=== PATIENT | male | born 1975 | race Caucasian/White ===

== ENCOUNTER 2024-03-11 14:43 | Outpatient (AMB) | payer OTHER, SELFPAY ==
--- NOTE | 2024-03-11 14:55 | MHC.PC.OV ---
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 Intake Note: New patient visit, needs colonoscopy Vessel Ordinary Seaman Required: No Allergies No Known Allergies Allergy (Verified 03/11/24 14:56) Medication List - Last Reconciled 03/11/24 by Mazin Garcia MD indomethacin 50 mg PO TID sildenafil 50 mg PO DAILY PRN Tobacco use date assessed: 03/11/24 Dental Screening Dental Screen Date: 03/11/24 Did you have a dental visit in the last 12 months?: Yes Did you have a dental problem in the last 6 months where you did not have access to dental care?: No Was dental information given to patient?: Patient has dentist 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 No recent PCP. [facility] Last office visit/CPE: 5 yrs Acute issue(s): Eye Exam PMHx: Gout, ED, SurgHx: None FHx: Dad: CAD w stent, HLD, HTN, Prostate CA. Mom: CAD w stent. CHF. GM: Breast CA. GF: CAD. pGF: Early AL SocHx: Nonsmoker. EtOH: 12 a day. No drugs PFSH Family History (Updated 03/11/24 @ 15:14 by Sarita Kaur CMA) Father Mental disorder HTN (hypertension) Prostate cancer Maternal Grandmother Diabetes Paternal Grandmother Breast cancer Paternal Grandfather Heart attack Social History (Updated 03/11/24 @ 15:15 by Sarita Kaur CMA) Housing: House Patient Tobacco Use Status: Former Tobacco user Tobacco use type: Smokeless Tobacco Years Smoked: chewed tobacco from [place] to age 29, and periodically after that. 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 1. Little interest or pleasure in doing things: not at all 2. Feeling down, depressed, or hopeless: not at all 3. Trouble falling or staying asleep, or sleeping too much: not at all 4. Feeling tired or having little energy: not at all 5. Poor appetite or overeating: not at all 6. Feeling bad about yourself - or that you are a failure or have let yourself or your family down: not at all 7. Trouble concentrating on things, such as reading the newspaper or watching television: not at all 8. Moving or speaking so slowly that other people could have noticed. Or the opposite - being so fidgety or restless that you have been moving around a lot more than usual: not at all 9. Thoughts that you would be better off or of hurting yourself in some way: not at all Total score: 0 Depression Screening Interpretation: Negative Depression Screening Done: Yes Source: Developed by Drs. Vipin Hendrix, Erin López, Arron Solares and colleagues, with an educational marie from [employer]. Thrive Questionnaire Date Thrive assessed: 03/11/24 I am a: Patient What is your living situation today?: I have a steady place to live Within the past 12 months, did the food you bought not last and you didn't have the money to get more?: Never true Within the past 12 months, did you worry whether your food would run out before you got money to buy more?: Never true Do you have trouble paying for medicines?: No Do you have trouble getting transportation to medical appointments?: No Do you have trouble paying your heating and electricity bill?: No Do you have trouble taking care of your child, family member or friend?: No Do you have trouble with day-to-day activities such as bathing, preparing meals, shopping, managing finances, etc.?: No Are you currently unemployed and looking for a job?: No Are you interested in more education?: No Please select the resources that you would like help with: None Currently or been in a relationship where the following occur: no concerns reported THRIVE Score: 0 AUDIT C Alcohol Use Questionnaire (AUDIT-C) 1. How often do you have a drink containing alcohol?: 4 or more times a week 2. How many drinks containing alcohol do you have on a typical day when you are drinking?: 5 or 6 3. How often do you have six or more drinks on one occasion?: Weekly Total Score: 9 ASHWIN-7 AMB Questionnaire ASHWIN-7 Date ASHWIN - 7 assessed: 03/11/24 Feeling nervous, anxious, or on edge: 0 = Not at all Not being able to stop or control worryin = Not at all Worrying too much about different things: 0 = Not at all Trouble relaxin = Not at all Being so restless that it is hard to sit still: 0 = Not at all Becoming easily annoyed or irritable: 0 = Not at all Feeling afraid as if something awful might happen: 0 = Not at all Total ASHWIN-7 score (0-4 normal; 5-9 mild; 10-14 moderate; 15-21 severe): 0 Source: Developed by Drs. Vipin Hendrix, Erin López, Arron Solares and colleagues, with an educational marie from [employer]. ASHWIN-7 Assessment Billing ASHWIN-7 Assessment Tool: ASHWIN-7 Assessment 72577 Review of Systems Const Denies chills, Denies fatigue, Denies fever(s), Denies headache(s) and Denies weakness ENT Denies dizziness and Denies headache(s) Card Denies chest pain, Denies lightheadedness, Denies dyspnea and Denies other (Palpitations) Resp Denies cough, Denies dyspnea, Denies wheezing and Denies other ( shortness of breath) Musc Denies numbness and Denies tingling Neuro Denies dizziness, Denies headache(s), Denies numbness, Denies tingling, Denies paresthesias and Denies weakness Psych Denies anxiety and Denies depression Endo Denies fatigue Aller/Immun Denies wheezing Physical exam (Primary Care) Vital Signs: Last Vital Signs Temp 98.7 F 03/11/24 15:04 Pulse 76 03/11/24 15:04 Resp 14 03/11/24 15:04 BP 152/88 H 03/11/24 15:07 Pulse Ox 96 03/11/24 15:04 Oxygen Delivery Method Room Air 03/11/24 15:04 BMI result Body Mass Index 31.7 Tobacco/Smoking Status: Tobacco use Status Tobacco use date assessed 03/11/24 03/11/24 15:08 Patient Tobacco Use Status Former Tobacco user 03/11/24 15:15 Tobacco use type Smokeless Tobacco 03/11/24 15:15 e-Cigarette/Vaping Use Never Used 03/11/24 15:15 PHQ-9: PHQ-9 Score PHQ-9: Total score 0 03/11/24 15:35 Depression Screening Interpretation: Negative Thrive Assessment: Date of Thrive Assessment Date Thrive assessed 03/11/24 03/11/24 15:18 Currently or been in a relationship where the following occur: no concerns reported Const General: no acute distress and well developed Nutritional Appearance: well nourished Orientation/consciousness: patient oriented x3 HENMT Head: Yes normocephalic and Yes atraumatic Eyes General: appearance normal, both eyes and all related structures Pupils: Equal, round and reactive pupils present EOM: EOMs intact bilaterally Resp Effort & Inspection: normal respiratory effort Auscultation: clear to auscultation bilaterally Cardio Rate: regular rate Rhythm: regular rhythm Heart sounds: S1 normal heart sound present, S2 normal heart sound present, no gallops, no murmurs and no rubs Neuro General: patient oriented x3 and gait normal Cranial nerves: Yes Equal, round and reactive pupils present Psych Affect: normal affect Assessment and Plan Assessment & Plan (1) Hypertension: Code(s): I10 - Essential (primary) hypertension Plan: Start?lisinopril Goal?is?less?than?140/90 (2) Gout: Code(s): M10.9 - Gout, unspecified Plan: Check?uric?acid Currently?using?indomethacin?though?this?can?raise?blood?pressure May?be?a?good?candidate?for?allopurinol Strongly?advised?he?reduce?his?alcohol?intake (3) Erectile dysfunction: Code(s): N52.9 - Male erectile dysfunction, unspecified Plan: Currently?uses?sildenafil (4) Family history of coronary artery disease: Code(s): Z82.49 - Family history of ischemic heart disease and other diseases of the circulatory system Plan: Strong?family?history?of?coronary?artery?disease. 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 Offered?a?referral?to?the?[facility]?which?he?has?declined?but?he?is?aware?that?he?can?let?me?know?he?changes?his?mind (7) Laboratory exam ordered as part of routine general medical examination: Code(s): Z00.00 - Encounter for general adult medical examination without abnormal findings Plan: Check?lab Orders: Orders Comprehensive [place]. Panel Fast Today Z00.00 - Encounter for general adult medical examination without abnormal findings Prostate Specific Antigen Scr Today Z12.5 - Encounter for screening for malignant neoplasm of prostate Uric Acid Today M10.9 - Gout, unspecified Lipid Panel Today Z00.00 - Encounter for general adult medical examination without abnormal findings Microalbumin, Random (w Creat) Today I10 - Essential (primary) hypertension TSH reflex Free T4 Today Z00.00 - Encounter for general adult medical examination without abnormal findings UA and rflx microscopic Today Z00.00 - Encounter for general adult medical examination without abnormal findings Referrals Gastroenterology Referral Z12.11 - Encounter for screening for malignant neoplasm of colon Ophthalmology Referral H53.9 - Unspecified visual disturbance Medications: New lisinopril 20 mg PO DAILY 30 days 30 tabs 2RF Coding Level of Care Code New Pt Level 3 (79434) Diagnoses Hypertension I10 Gout M10.9 Erectile dysfunction N52.9 Family history of coronary artery disease Z82.49 Vision changes H53.9 Alcohol abuse F10.10 Laboratory exam ordered as part of routine general medical examination Z00.00 Additional Codes ASHWIN-7 Assessment Billing - ASHWIN-7 Assessment Tool: ASHWIN-7 Assessment 36259 ([id number])
[2024-03-11 15:04] VITALS: BP 164/90; PULSE 76; RESP 14; TEMP 37.1; O2SAT 96; BMI 31.7
[2024-03-11 15:07] VITALS: BP 152/88
== END 2024-03-11 16:10 | disposition home or self-care (01) ==
PROVIDERS: PCP Family Medicine; Visit Provider Family Medicine
DX: I10 Essential (primary) hypertension (principal); M10.9 Gout, unspecified; N52.9 Male erectile dysfunction, unspecified; Z82.49 Family history of ischemic heart disease and other diseases of the circulatory system; H53.9 Unspecified visual disturbance; F10.10 Alcohol abuse, uncomplicated
CPT/HCPCS: 99203

== ENCOUNTER 2024-03-13 09:18 | Outpatient (REF) | payer OTHER, SELFPAY ==
[2024-03-13 11:33] LABS: Appearance Urine Clear; Color Urine Yellow; Glucose Urine UA Negative (Negative); Leukocyte Esterase Urine Negative (Negative); Nitrite Urine Negative (Negative); Urine Blood Negative (Negative); Urine Ketones Trace mg/dL (Negative); Urine Protein Negative (Neg-Trace)
[2024-03-13 12:44] LABS: Prostate Specific Antigen Scr 2.69 ng/mL (<0.05-4.0)
[2024-03-13 12:55] LABS: Alanine Aminotransferase 60 U/L (0-40); Albumin Level 4.6 g/dL (3.5-5.0); Alkaline Phosphatase 80 U/L (39-117); Anion Gap 15 (12-20); Aspartate Amino Transferase 49 U/L (5-37); Bilirubin Total 1.3 mg/dL (0.0-1.0); Blood Urea Nitrogen 7 mg/dL (9-16); Calcium 9.8 mg/dL (8.4-10.2); Carbon Dioxide 26 mmol/L (22-29); Chloride 99 mmol/L (96-108); Cholesterol 274 mg/dL (<200); Estimated Glomerular Filt Rate > 60; Glucose Fasting 95 mg/dL (60-99); HDL Cholesterol 79 mg/dL (>40); LDL Cholesterol Calculated 181 mg/dL (<100); Potassium 4.2 mmol/L (3.3-5.1); Sodium 136 mmol/L (135-145); TSH reflex Free T4 2.29 uIU/mL (0.32-4.0); Total Protein 8.3 g/dL (6.5-8.0); Triglycerides 72 mg/dL (<150); Uric Acid 6.9 mg/dL (3.4-7.0)
[2024-03-13 12:57] LABS: Creatinine Urine 56.69 mg/dL; Microalbum/Creatinine Ratio Ur 10.5 ug/mg cr (<30)
== END 2024-03-13 09:19 | disposition home or self-care (01) ==
LOC: HO.WFDLDS 09:18
PROVIDERS: Visit Provider Family Medicine
DX: Z00.00 Encounter for general adult medical examination without abnormal findings (principal); Z12.5 Encounter for screening for malignant neoplasm of prostate; M10.9 Gout, unspecified; I10 Essential (primary) hypertension
CPT/HCPCS: 36415; 80053; 80061; 81003; 82043; 82570; 84153; 84443; 84550

== ENCOUNTER 2024-07-15 08:45 | Outpatient (AMB) | payer OTHER, SELFPAY ==
--- NOTE | 2024-07-15 08:58 | A.OFFPC_ITS ---
Vital Signs 07/15/24 09:08 Height 5 ft 9.88 in Weight 218 lb 8 oz BMI 31.5 BP 120/70 Blood Pressure Location Rt brachial Position Sitting Respiration 12 Pulse 77 Pulse Source Pulse Oximeter Temp 98 F Temp Source Tympanic Pulse Oximetry (%) 96 Oxygen Delivery Method Room Air Intake Visit Reasons: CPE with f/u labs and health maint. Intake Note: CPE follow up on labs Allergies No Known Allergies Allergy (Verified 07/15/24 08:59) Medication List - Last Reconciled 07/15/24 by Mazin Garcia MD indomethacin 50 mg PO TID 10 days sildenafil 50 mg PO DAILY PRN 30 days Tobacco use date assessed: 03/11/24 Dental Screening Dental Screen Date: 07/15/24 Did you have a dental visit in the last 12 months?: Yes Did you have a dental problem in the last 6 months where you did not have access to dental care?: No Was dental information given to patient?: Patient has dentist HPI CPE with f/u labs and health maint. HPI Details 49 y/o male presents for a CPE with f/u labs and health maintenance. Labs drawn 03/13/24. Reviewed labs with pt. Elevated liver enzymes - AST 49 and ALT 60. Triglycerides 72. TC 274. LDL 181. HDL 79. Blood pressure today 120/70. He states he is no longer taking lisinopril as he had been unable to tolerate it. [facility] Family History (Updated 03/11/24 @ 15:14 by Sarita Kaur CMA) Father Mental disorder HTN (hypertension) Prostate cancer Maternal Grandmother Diabetes Paternal Grandmother Breast cancer Paternal Grandfather Heart attack Social History (Updated 07/15/24 @ 09:03 by Vinh May) Housing: House Patient Tobacco Use Status: Former Tobacco user Tobacco use type: Smokeless Tobacco Years Smoked: chewed tobacco from [place] to age 29, and periodically after that. 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 1. Little interest or pleasure in doing things: not at all 2. Feeling down, depressed, or hopeless: not at all 3. Trouble falling or staying asleep, or sleeping too much: not at all 4. Feeling tired or having little energy: not at all 5. Poor appetite or overeating: not at all 6. Feeling bad about yourself - or that you are a failure or have let yourself or your family down: not at all 7. Trouble concentrating on things, such as reading the newspaper or watching television: not at all 8. Moving or speaking so slowly that other people could have noticed. Or the opposite - being so fidgety or restless that you have been moving around a lot more than usual: not at all 9. Thoughts that you would be better off or of hurting yourself in some way: not at all Total score: 0 Depression Screening Interpretation: Negative Depression Screening Done: Yes 19856 - PHQ-9 Billing: Yes Source: Developed by Drs. Vipin Hendrix, Erin López, Arron Solares and colleagues, with an educational marie from [employer]. Thrive Questionnaire Date Thrive assessed: 07/15/24 I am a: Patient What is your living situation today?: I have a steady place to live Within the past 12 months, did the food you bought not last and you didn't have the money to get more?: Never true Within the past 12 months, did you worry whether your food would run out before you got money to buy more?: Never true Do you have trouble paying for medicines?: No Do you have trouble getting transportation to medical appointments?: No Do you have trouble paying your heating and electricity bill?: No Do you have trouble taking care of your child, family member or friend?: No Do you have trouble with day-to-day activities such as bathing, preparing meals, shopping, managing finances, etc.?: No Are you currently unemployed and looking for a job?: No Are you interested in more education?: No Please select the resources that you would like help with: None Currently or been in a relationship where the following occur: No concerns reported THRIVE Score: 0 AUDIT C Alcohol Use Questionnaire (AUDIT-C) 1. How often do you have a drink containing alcohol?: 4 or more times a week 2. How many drinks containing alcohol do you have on a typical day when you are drinking?: 10 or more 3. How often do you have six or more drinks on one occasion?: Daily or almost daily Total Score: 12 Score Reviewed/Action Taken: Yes ASHWIN-7 AMB Questionnaire ASHWIN-7 Date ASHWIN - 7 assessed: 07/15/24 Feeling nervous, anxious, or on edge: 0 = Not at all Not being able to stop or control worryin = Not at all Worrying too much about different things: 1 = Several days Trouble relaxin = Not at all Being so restless that it is hard to sit still: 0 = Not at all Becoming easily annoyed or irritable: 0 = Not at all Feeling afraid as if something awful might happen: 0 = Not at all Total ASHWIN-7 score (0-4 normal; 5-9 mild; 10-14 moderate; 15-21 severe): 1 Source: Developed by Drs. Vipin Hendrix, Erin López, Arron Solares and colleagues, with an educational marie from [employer]. ASHWIN-7 Assessment Billing ASHWIN-7 Assessment Tool: ASHWIN-7 Assessment 61931 Review of Systems Const Denies chills, Denies fatigue, Denies fever(s), Denies headache(s) and Denies weakness Eyes Denies change in vision ENT Denies dizziness, Denies headache(s), Denies hearing loss, Denies nasal congestion, Denies sinus pain, Denies sinus pressure and Denies sore throat Card Denies chest pain, Denies lightheadedness, Denies dyspnea and Denies other (palpitations) Resp Denies cough, Denies dyspnea and Denies wheezing GI Denies abdominal pain, Denies melena, Denies hematochezia, Denies change in bowel habits, Denies dyspepsia and Denies nausea Denies hematuria and Denies dysuria Musc Denies abnormal gait, Denies myalgias, Denies arthralgias, Denies numbness and Denies tingling Skin/Breast Denies rash, Denies unusual bruising and Denies wounds Neuro Denies abnormal gait, Denies dizziness, Denies headache(s), Denies memory loss, Denies numbness, Denies Sensory deficit (Neuro), Denies tingling and Denies weakness Psych Denies anxiety, Denies depression and Denies memory loss Endo Denies cold intolerance, Denies fatigue, Denies heat intolerance, Denies polydipsia and Denies polyuria Tera/Lymph Denies easy bleeding and Denies easy bruising Aller/Immun Denies wheezing Physical exam (Primary Care) Vital Signs: Last Vital Signs Temp 98 F 07/15/24 09:08 Pulse 77 07/15/24 09:08 Resp 12 07/15/24 09:08 BP 120/70 07/15/24 09:08 Pulse Ox 96 07/15/24 09:08 Oxygen Delivery Method Room Air 07/15/24 09:08 BMI result Body Mass Index 31.5 Tobacco/Smoking Status: Tobacco use Status Tobacco use date assessed 03/11/24 07/15/24 09:11 Patient Tobacco Use Status Former Tobacco user 07/15/24 09:11 Tobacco use type Smokeless Tobacco 07/15/24 09:11 e-Cigarette/Vaping Use Never Used 07/15/24 09:11 PHQ-9: PHQ-9 Score PHQ-9: Total score 0 07/15/24 10:17 Depression Screening Interpretation: Negative Thrive Assessment: Date of Thrive Assessment Date Thrive assessed 07/15/24 07/15/24 09:11 Currently or been in a relationship where the following occur: No concerns reported Const General: no acute distress, well developed, alert and awake Nutritional Appearance: well nourished Orientation/consciousness: patient oriented x3 HENMT Head: Yes normocephalic and Yes atraumatic Ears: hearing grossly normal bilaterally and TM's normal bilaterally General nose exam: Normal external nose present and Normal nares present Mouth: Normal oral and palatal mucosa present and moist mucous membranes Teeth and gingiva: dentition normal Throat: Yes posterior oropharynx normal Eyes General: appearance normal, both eyes and all related structures Pupils: Equal, round and reactive pupils present and Pupil accommodation reflex normal EOM: EOMs intact bilaterally Neck Neck: Yes normal visual inspection, Yes no lymphadenopathy and Yes trachea midline Thyroid: Thyroid normal Carotids: no bruits Lymphatic: no lymphadenopathy noted Chest Chest palpation & inspection: normal inspection of the chest Resp Effort & Inspection: normal respiratory effort Auscultation: clear to auscultation bilaterally Cardio Rate: regular rate Rhythm: regular rhythm Heart sounds: S1 normal heart sound present, S2 normal heart sound present, no gallops, no murmurs and no rubs Bruits: no abdominal aortic bruits and no carotid bruits GI Palpation (GI): No Abdominal aortic bruit present, Soft to palpation, nontender, No hepatosplenomegaly present and No Rebound tenderness present Auscultation: normal bowel sounds General: Yes no CVA tenderness Back/Spine/Pelvis Back: no CVA tenderness Cervical Spine: cervical ROM normal and No Cervical spine tenderness Thoracic/Lumbar Spine: thoraco-lumbar ROM normal, No pain with thoraco-lumbar ROM, No thoracic spinal tenderness and No lumbar spinal tenderness Skin Lesions: no lesions Rashes: no rashes Trauma: no lacerations or abrasions Wounds: no wounds Nails: normal Neuro General: patient oriented x3 Cranial nerves: Yes Equal, round and reactive pupils present Cognition (Neuro): normal cognition Gait exam (Neuro): Normal gait present Motor exam (neuro): 5/5 motor strength present throughout Sensory Exam: No Sensory deficit (Neuro) Deep tendon reflexes (DTR's): Right patellar reflex intensity grade: 2+ and Left patellar reflex intensity grade: 2+ Extrem General: Yes normal to inspection and No edema Psych Appearance: grossly normal Affect: normal affect Attitude: cooperative Thought process: Normal thought process present Assessment and Plan Assessment & Plan (1) Adult general medical exam: Code(s): Z00.00 - Encounter for general adult medical examination without abnormal findings Plan: 49-year-old?male?presents?for?complete?physical?exam Encouraged?healthy?diet?with?active?lifestyle?and?plenty?of?exercise (2) Hypertension: Code(s): I10 - Essential (primary) hypertension Plan: Blood?pressure?was?high?at?passed?to?visits?but?is?essentially?wit hin?normal?range?today. Patient?drinks?significant?amounts?of?alcohol?and?this?may?be?causing?fluctuatio ns. He?has?a?blood?pressure?monitor?at?home?and?will?call?me?if?SBP?consistently?gre ater?than?140?or?if?fluctuating?over?155?often. Had?tried?lisinopril?which?he?did?not?tolerate. (3) Hyperlipidemia: Code(s): E78.5 - Hyperlipidemia, unspecified Plan: Significantly?elevated?LDL?cholesterol.??HDL?is?quite?good?however. Nevertheless,?patient?has?strong?family?history?of?coronary?artery? disease?with?both?parents?requiring?stents?and?grandfather?having?1st?PR?in?his? 50s. He?will?work?on?a?diet?lower?in?saturated?fats?and?cholesterol,?exercise?and?[place] ght?loss.??Discussed?reduction?of?alcohol?use Will?repeat?lipids?in?about?2?months.??If?not?significantly?improved,?will?discu ss?statin?medication (4) Alcohol abuse: Code(s): F10.10 - Alcohol abuse, uncomplicated Plan: Encouraged?weaning?down?alcohol?use (5) Elevated liver enzymes: Code(s): R74.8 - Abnormal levels of other serum enzymes Plan: Liver?enzymes?are?elevated. Encouraged?weaning?down?alcohol?use,?good?hydration?and?weight?loss Will?recheck?this?with?next?blood?draw.??If?liver?enzymes?are?the?same?or?higher ?will?check?an?ultrasound (6) Screening for colon cancer: Code(s): Z12.11 - Encounter for screening for malignant neoplasm of colon Plan: Patient?is?refer?to?Gastroenterology.??His?jessica ointment?was?rescheduled?but?he?will?get?this?done (7) Screening for prostate cancer: Code(s): Z12.5 - Encounter for screening for malignant neoplasm of prostate Plan: PSA?was?within?normal?limits Will?continue?annual?screening Orders: Orders Lipid Panel Today E78.5 - Hyperlipidemia, unspecified, Z00.00 - Encounter for general adult medical examination without abnormal findings Comprehensive [place]. Panel Fast Today E78.5 - Hyperlipidemia, unspecified, Z00.00 - Encounter for general adult medical examination without abnormal findings Coding Level of Care Code Est Pt Level 3 (98205) Est Pt Prev Care 40-64y(56837) Diagnoses Adult general medical exam Z00.00 Hypertension I10 Hyperlipidemia E78.5 Alcohol abuse F10.10 Elevated liver enzymes R74.8 Screening for colon cancer Z12.11 Screening for prostate cancer Z12.5 Additional Codes ASHWIN-7 Assessment Billing - ASHWIN-7 Assessment Tool: ASHWIN-7 Assessment 76151 ([id number])
[2024-07-15 09:08] VITALS: BP 120/70; PULSE 77; RESP 12; TEMP 36.6; O2SAT 96; BMI 31.5
== END 2024-07-15 10:19 | disposition home or self-care (01) ==
PROVIDERS: PCP Family Medicine; Visit Provider Family Medicine
DX: Z00.00 Encounter for general adult medical examination without abnormal findings (principal); I10 Essential (primary) hypertension; E78.5 Hyperlipidemia, unspecified; F10.10 Alcohol abuse, uncomplicated; R74.8 Abnormal levels of other serum enzymes; Z12.11 Encounter for screening for malignant neoplasm of colon; Z12.5 Encounter for screening for malignant neoplasm of prostate
CPT/HCPCS: 99213; 99396

== ENCOUNTER 2024-10-13 09:17 | Outpatient (REF) | payer OTHER, SELFPAY ==
[2024-10-13 11:52] LABS: Alanine Aminotransferase 104 U/L (0-40); Albumin Level 4.4 g/dL (3.5-5.0); Alkaline Phosphatase 81 U/L (39-117); Anion Gap 11 (12-20); Aspartate Amino Transferase 80 U/L (5-37); Bilirubin Total 0.7 mg/dL (0.0-1.0); Blood Urea Nitrogen 6 mg/dL (9-16); Calcium 9.7 mg/dL (8.4-10.2); Carbon Dioxide 31 mmol/L (22-29); Chloride 103 mmol/L (96-108); Cholesterol 272 mg/dL (<200); Estimated Glomerular Filt Rate > 60; Glucose Fasting 96 mg/dL (60-99); HDL Cholesterol 59 mg/dL (>40); LDL Cholesterol Calculated 181 mg/dL (<100); Potassium 4.1 mmol/L (3.3-5.1); Sodium 141 mmol/L (135-145); Total Protein 7.8 g/dL (6.5-8.0); Triglycerides 163 mg/dL (<150)
== END 2024-10-13 09:18 | disposition home or self-care (01) ==
LOC: HO.WFDLDS 09:17
PROVIDERS: Visit Provider Family Medicine
DX: Z00.00 Encounter for general adult medical examination without abnormal findings (principal); E78.5 Hyperlipidemia, unspecified
CPT/HCPCS: 36415; 80053; 80061

== ENCOUNTER → 2024-10-19 16:20 | Outpatient (AMB) | payer OTHER, SELFPAY ==
--- NOTE | 2024-10-19 16:31 | A.OFFPC_ITS ---
Vital Signs 10/19/24 16:32 Height 5 ft 9.88 in Weight 228 lb 6 oz BMI 32.9 BP 146/67 H Blood Pressure Location Lt brachial Position Sitting Respiration 18 Pulse 79 Pulse Source Pulse Oximeter Temp 98.6 F Temp Source Temporal Artery Scan Pulse Oximetry (%) 97 Oxygen Delivery Method Room Air Intake Visit Reasons: Resched from 09/16: F/U BP and labs Intake Note: f/u labs Allergies No Known Allergies Allergy (Verified 10/19/24 16:31) Medication List - Last Reconciled 10/19/24 by Mazin Garcia MD indomethacin 50 mg PO TID 10 days sildenafil 50 mg PO DAILY PRN 30 days Tobacco use date assessed: 03/11/24 Dental Screening Dental Screen Date: 07/15/24 HPI Resched from 09/16: F/U BP and labs HPI Details 49 y/o male presents to f/u hypertension , HLD, and elevated liver enzymes. Strong FHx of CAD. Blood pressure today 146/67, 79p. Notes he did not like how lisinopril felt and could not tolerate it. Labs drawn 10/13/24. Reviewed labs with pt. Ongoing elevated liver enzymes - AST 80, ALT 104, worsened from prior. Triglycerieds 163. TC 272. LDL 181. HDL 59. Pt notes hx of snoring. Notes acute adjustment disorder due to the passing of family members. Denies any SI/HI. HPI Comments History of Present Illness Details Documentation assistance for Mazin Garcia MD, was provided by Bobby Senior,? Investment Manager on 10/19/2024 at 5:11 PM EST. I, Dr. Garcia, have read, observed, and verified documentation. [facility] Family History (Updated 03/11/24 @ 15:14 by Sarita Kaur CMA) Father Mental disorder HTN (hypertension) Prostate cancer Maternal Grandmother Diabetes Paternal Grandmother Breast cancer Paternal Grandfather Heart attack Social History (Updated 07/15/24 @ 09:03 by FAZAL Cha) Housing: House Patient Tobacco Use Status: Former Tobacco user Tobacco use type: Smokeless Tobacco Years Smoked: chewed tobacco from [place] to age 29, and periodically after that. 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 1. Little interest or pleasure in doing things: not at all 2. Feeling down, depressed, or hopeless: several days 3. Trouble falling or staying asleep, or sleeping too much: not at all 4. Feeling tired or having little energy: several days 5. Poor appetite or overeating: not at all 6. Feeling bad about yourself - or that you are a failure or have let yourself or your family down: not at all 7. Trouble concentrating on things, such as reading the newspaper or watching television: not at all 8. Moving or speaking so slowly that other people could have noticed. Or the opposite - being so fidgety or restless that you have been moving around a lot more than usual: not at all 9. Thoughts that you would be better off or of hurting yourself in some way: not at all Total score: 2 Source: Developed by Drs. Vipin Hendrix, Erin López, Arron Solares and colleagues, with an educational marie from [employer]. Thrive Questionnaire Date Thrive assessed: 07/15/24 I am a: Patient What is your living situation today?: I have a steady place to live Within the past 12 months, did the food you bought not last and you didn't have the money to get more?: Never true Within the past 12 months, did you worry whether your food would run out before you got money to buy more?: Never true Do you have trouble paying for medicines?: No Do you have trouble getting transportation to medical appointments?: No Do you have trouble paying your heating and electricity bill?: No Do you have trouble taking care of your child, family member or friend?: No Do you have trouble with day-to-day activities such as bathing, preparing meals, shopping, managing finances, etc.?: No Are you currently unemployed and looking for a job?: No Are you interested in more education?: Yes Please select the resources that you would like help with: None Currently or been in a relationship where the following occur: No concerns reported THRIVE Score: 0 AUDIT C Alcohol Use Questionnaire (AUDIT-C) 1. How often do you have a drink containing alcohol?: 2-3 times a week 2. How many drinks containing alcohol do you have on a typical day when you are drinking?: 5 or 6 3. How often do you have six or more drinks on one occasion?: Weekly Total Score: 8 ASHWIN-7 AMB Questionnaire ASHWIN-7 Date ASHWIN - 7 assessed: 07/15/24 Feeling nervous, anxious, or on edge: 0 = Not at all Not being able to stop or control worryin = Not at all Worrying too much about different things: 1 = Several days Trouble relaxin = Not at all Being so restless that it is hard to sit still: 0 = Not at all Becoming easily annoyed or irritable: 0 = Not at all Feeling afraid as if something awful might happen: 0 = Not at all Total ASHWIN-7 score (0-4 normal; 5-9 mild; 10-14 moderate; 15-21 severe): 1 Source: Developed by Drs. Vipin Hendrix, Erin López, Arron Solares and colleagues, with an educational marie from [employer]. Review of Systems Const Denies chills, Denies fatigue, Denies fever(s), Denies headache(s) and Denies weakness ENT Denies dizziness and Denies headache(s) Card Denies dyspnea Resp Denies cough, Denies dyspnea, Denies wheezing and Denies other (shortness of breath) Musc Denies numbness and Denies tingling Neuro Denies dizziness, Denies headache(s), Denies numbness, Denies tingling and Denies weakness Psych Reports anxiety and Reports depression Endo Denies fatigue Aller/Immun Denies wheezing Physical exam (Primary Care) Vital Signs: Last Vital Signs Temp 98.6 F 10/19/24 16:32 Pulse 79 10/19/24 16:32 Resp 18 10/19/24 16:32 BP 146/67 H 10/19/24 16:32 Pulse Ox 97 10/19/24 16:32 Oxygen Delivery Method Room Air 10/19/24 16:32 BMI result Body Mass Index 32.9 Tobacco/Smoking Status: Tobacco use Status Tobacco use date assessed 03/11/24 10/19/24 16:34 Patient Tobacco Use Status Former Tobacco user 10/19/24 16:34 Tobacco use type Smokeless Tobacco 10/19/24 16:34 e-Cigarette/Vaping Use Never Used 10/19/24 16:34 PHQ-9: PHQ-9 Score PHQ-9: Total score 2 10/19/24 16:36 Thrive Assessment: Date of Thrive Assessment Date Thrive assessed 07/15/24 10/19/24 16:34 Currently or been in a relationship where the following occur: No concerns reported Const General: well developed; No acute distress Nutritional Appearance: well nourished Orientation/consciousness: patient oriented x3 HENMT Head: Yes normocephalic and Yes atraumatic Eyes General: appearance normal, both eyes and all related structures Pupils: Equal, round and reactive pupils present EOM: EOMs intact bilaterally Resp Effort & Inspection: normal respiratory effort Auscultation: clear to auscultation bilaterally Cardio Rate: regular rate Rhythm: regular rhythm Heart sounds: S1 normal heart sound present, S2 normal heart sound present, no gallops, no murmurs and no rubs Neuro General: patient oriented x3 and gait normal Cranial nerves: Yes Equal, round and reactive pupils present Psych Affect: normal affect Coding Level of Care Code Est Pt Level 4 (15377) Diagnoses Hypertension I10 Hyperlipidemia E78.5 Elevated liver enzymes R74.8 Family history of coronary artery disease Z82.49 Abnormal EKG R94.31 Sleep apnea G47.30 Acute adjustment disorder F43.20 Assessment & Plan Assessment & Plan (1) Hypertension: Code(s): I10 - Essential (primary) hypertension Category: Medical Plan: Blood?pressure?146/67?and?martinez d?prescribed?lisinopril?in?the?past.??At?last?visit?in?July?his?blood?pressure ?was?120/70.??However,?he?is?no?longer?taking?medication. Also?has?strong?family?history?of?coronary?artery?disease. EKG?today: ?Normal?sinus?rhythm,?left?axis?deviation,?complete?right?bundle?branch?block. No?ST?T-wave?changes. Patient?had?been?on?lisinopril?but?was?apprehensive?taking?this. Recent?deaths?in[place]?he?is?still?apprehensive?of?taking?medication.??Will?readdress?1?month. Encouraged?lifestyle?changes Patient?also?likely?has?sleep?apnea?and?will?evaluate?for?this (2) Hyperlipidemia: Code(s): E78.5 - Hyperlipidemia, unspecified Category: Medical Plan: LDL?cholesterol?is?again?high?today; greater?than?180 Recommending?atorvastatin?40?mg?daily and?patient?agrees?try?this (3) Elevated liver enzymes: Code(s): R74.8 - Abnormal levels of other serum enzymes Category: Medical Plan: Patient?has?gained?about?10?lb?since?July. Liver?enzymes?were?elevated.??Had?recommended?weight?loss. Patient?had?been?decreasing?alcohol?intake?until??of?his?sister. Liver?enzymes?higher?at?most?recent?check Will?get?ultrasound?elastography?to?evaluate?further (4) Family history of coronary artery disease: Code(s): Z82.49 - Family history of ischemic heart disease and other diseases of the circulatory system Category: Medical Plan: As?above?checking?EKG?as?patient?has?hypertension?and?family?history?disease See?above (5) Abnormal EKG: Code(s): R94.31 - Abnormal electrocardiogram [ECG] [EKG] Category: Medical Plan: Patient?with?hypertension,?hyperlipidemia?and?strong?family?history?of?co ronary?artery?disease?and?abnormal?EKG Will?check?stress?test?and?follow-up?with?patient. Working?on?controlling?cholesterol?and?lipids (6) Sleep apnea: Code(s): G47.30 - Sleep apnea, unspecified Category: Medical Plan: Referred?to?Sleep?Medicine (7) Acute adjustment disorder: Code(s): F43.20 - Adjustment disorder, unspecified Category: Medical Plan: Patient?2?family?members??recently Declines?referral?to?therapy?or?medication.??Denies?SI/HI I?let?him?know?that?medication?or?therapy?are?available?know?if?he?wants?try. Orders: Orders AMB EKG-In Office Today I10 - Essential (primary) hypertension, Z82.49 - Family history of ischemic heart disease and other diseases of the circulatory system US abdomen garcia w elastography Today R74.8 - Abnormal levels of other serum enzymes CA stress test Today I10 - Essential (primary) hypertension, R94.31 - Abnormal electrocardiogram [ECG] [EKG], Z82.49 - Family history of ischemic heart disease and other diseases of the circulatory system Referrals Sleep Medicine Referral G47.30 - Sleep apnea, unspecified Medications: New atorvastatin 40 mg PO BEDTIME 90 days 90 tabs 3RF omeprazole 20 mg PO DAILY 30 days 30 caps 1RF atorvastatin 40 mg PO BEDTIME 90 days 90 tabs 2RF
[2024-10-19 16:32] VITALS: BP 146/67; PULSE 79; RESP 18; TEMP 37; O2SAT 97; BMI 32.9
== END ==
PROVIDERS: PCP Family Medicine; Visit Provider Family Medicine
DX: I10 Essential (primary) hypertension (principal); E78.5 Hyperlipidemia, unspecified; R74.8 Abnormal levels of other serum enzymes; Z82.49 Family history of ischemic heart disease and other diseases of the circulatory system; R94.31 Abnormal electrocardiogram [ECG] [EKG]; G47.30 Sleep apnea, unspecified; F43.20 Adjustment disorder, unspecified

== ENCOUNTER → 2024-10-19 16:20 | Outpatient (BNVA) | payer OTHER, SELFPAY | PROVIDERS: PCP Family Medicine; Visit Provider Family Medicine | DX: I10 Essential (primary) hypertension (principal); E78.5 Hyperlipidemia, unspecified; R74.8 Abnormal levels of other serum enzymes; G47.30 Sleep apnea, unspecified; F43.20 Adjustment disorder, unspecified; Z82.49 Family history of ischemic heart disease and other diseases of the circulatory system | CPT/HCPCS: 96127; 99212 ==